=== PATIENT | female | born 1990 | race African-American/Black ===

== ENCOUNTER 2019-01-03 22:31 | Emergency (ER) | payer MEDICAID, OTHER ==
[~2019-01-03] VITALS: Ht 165.1 cm; Wt 87.0 kg
[~2019-01-03 22:31] MED LIST: [UNRECOGNIZED DRUG - CODE]
[2019-01-04] MEDS ORDERED: HYDROCODONE/ACETAMINOPHEN 5/325MG TABLET PO ONE (01:45)
[2019-01-04] MEDS ORDERED: ACETAMINOPHEN 325MG TABLET PO ONE (02:00)
[2019-01-04 02:55] VITALS: BP 126/68
== END 2019-01-04 02:58 | disposition home or self-care (01) ==
LOC: ER 22:31
DX: S09.90XA Unspecified injury of head, initial encounter (principal); S20.212A Contusion of left front wall of thorax, initial encounter; S43.402A Unspecified sprain of left shoulder joint, initial encounter; Y04.2XXA Assault by strike against or bumped into by another person, initial encounter; Y93.89 Activity, other specified; Y92.89 Other specified places as the place of occurrence of the external cause; Z98.82 Breast implant status
CPT/HCPCS: 71045; 81025; 99283

== ENCOUNTER 2020-12-30 15:30 | Emergency (ER) | payer OTHER ==
[~2020-12-30] VITALS: Ht 162.6 cm; Wt 83.0 kg
[2020-12-31] MEDS ORDERED: ACETAMINOPHEN 325MG TABLET PO ONE
[2020-12-31] MEDS ORDERED: ACET-2708 MT (00:20)
[2020-12-31 00:29] VITALS: BP 131/74
== END 2020-12-31 00:29 | disposition home or self-care (01) ==
LOC: ER 15:54
DX: T81.40XA Infection following a procedure, unspecified, initial encounter (principal); N61.0 Mastitis without abscess; Z88.0 Allergy status to penicillin; Y83.8 Other surgical procedures as the cause of abnormal reaction of the patient, or of later complication, without mention of misadventure at the time of the procedure; Y92.018 Other place in single-family (private) house as the place of occurrence of the external cause
CPT/HCPCS: 99282